=== PATIENT | male | born 2000 | race Caucasian/White ===

== ENCOUNTER 2023-04-25 11:44 | Emergency (ER) | payer OTHER ==
[~2023-04-25] VITALS: Ht 175.3 cm; Wt 79.0 kg
[2023-04-25 11:45] VITALS: TEMP 98.8
[2023-04-25 15:01] VITALS: BP 142/81; O2SAT 100
== END 2023-04-25 15:07 | disposition home or self-care (01) ==
LOC: M ED 11:44
DX: S01.01XA Laceration without foreign body of scalp, initial encounter (principal); W01.118A Fall on same level from slipping, tripping and stumbling with subsequent striking against other sharp object, initial encounter; Y99.0 Civilian activity done for income or pay